=== PATIENT | male | born 1970 | race Caucasian/White ===

== ENCOUNTER 2022-08-18 00:50 | Inpatient (IN) | payer OTHER, SELFPAY ==
[2022-08-18] MEDS ORDERED: Cefepime 2 GM VIAL ONE (01:32)
[2022-08-18 01:51] LABS: Hemoglobin 13.7 g/dL (14.0-18.0); Mean Corpuscular HGB CONC 33.3 g/dL (32.0-36.0); Mean Corpuscular Hemoglobin 28.2 pg (27.0-31.0); Mean Corpuscular Volume 84.8 fl (78.0-98.0); Mean Platelet Volume 7.6 fL (7.4-10.4); Platelet Count 428 10x3/uL (130-400); RBC Distribution Width 12.2 % (11.5-14.5); Red Blood Cell (RBC) Count 4.83 mill/uL (4.70-6.10); White Blood Cell (WBC) Count 18.7 10x3/uL (4.8-10.8)
[2022-08-18 02:05] LABS: ALT (SGPT) Less than 7 U/L (8-55); AST (SGOT) 8 U/L (5-34); Albumin 3.6 g/dL (3.5-5.0); Alkaline Phosphatase 52 U/L (40-110); Anion Gap 21 mmol/L (10-20); BUN (Urea Nitrogen) 15 mg/dL (8.9-20.6); Bilirubin, Total 0.5 mg/dL (0.2-1.2); Calc. Creatinine Clearance 0 mL/min (70-130); Calcium 9.4 mg/dL (7.8-10.44); Carbon Dioxide 16 mmol/L (22-29); Chloride 94 mmol/L (98-107); Estimated GFR 95; Globulin 3.4 g/dL (2.4-3.5); Potassium 3.8 mmol/L (3.5-5.1); Sodium 127 mmol/L (136-145)
[2022-08-18 02:09] LABS: Glucose 724 mg/dL (70-105)
[2022-08-18 02:10] LABS: Band 12 % (5-11); Eosinophils 3 % (0-10); Lymphocytes 15 % (21-51); MDiff Complete? YES; Monocytes 6 % (0-10); Neutrophil 64 % (42-75); Platelet Morphology Comment Appears Increased; RBC Morphology Normal
[2022-08-18 02:27] LABS: Actual Bicarbonate (HCO3v) 21 mEq/L (22-28); Analyzer IN Cardio ER; Base Excess -1.4 mEq/L (-2.0 to +3.0); Calcium, Ionized (venous) 1.09 mmol/L (1.16-1.32); Chloride (VBG) 96 mmol/L (98-106); Hemoglobin (Hb) 14.3 g/dL (13.1-17.2); Potassium (VBG) 4.59 mmol/L (3.70-5.30); pH (venous) 7.49 (7.32-7.43)
[2022-08-18] MEDS ORDERED: VANCOMYCIN 1.75 GM/500 ML BAG 1.75 GM in Premix Bag 1 BAG IVPB SCH (03:00)
[2022-08-18 03:44] LABS: Bacteria/HPF None Seen HPF (None Seen); Bilirubin Negative (Negative); Blood, Urine 3+ (Negative); Clarity Clear (Clear); Glucose, Urine (Dipstick) Greater than 1000 mg/dL (Negative); Ketone, Urine 40 mg/dL (Negative); Leukocyte Negative Leu/uL (Negative); Nitrite Negative (Negative); Protein, Urine (Dipstick) Negative (Neg-Trace); RBC/HPF 21-50 HPF (0-3); Specific Gravity, Urine 1.039 (1.002-1.036); Squamous Epithelial None Seen HPF (0-3); Urobilinogen Normal mg/dL (Less than 2); pH, Urine 5.5 (5.0-9.0)
[2022-08-18] MEDS ORDERED: Dextrose 5% in Water 1,000 ML IV PRN (05:08)
[2022-08-18] MEDS ORDERED: Dextrose 50% Abboject 50 ML SYRINGE SLOW IVP PRN (05:08)
[2022-08-18] MEDS ORDERED: Ondansetron PF 4 MG/2 ML Vial IVP PRN ×2 (06:45→09:01)
[2022-08-18] MEDS ORDERED: Sodium Chloride 0.9% 1,000 ML IV SCH ×2 (06:45→09:30)
[2022-08-18] MEDS ORDERED: Ondansetron ODT 4 MG TAB SL PRN (06:45)
[2022-08-18] MEDS ORDERED: Acetaminophen 325 MG TAB PO PRN ×2 (06:45→09:01)
[2022-08-18] MEDS ORDERED: Ondansetron ODT 4 MG TAB PO PRN (09:01)
[2022-08-18] MEDS ORDERED: Calcium Carbonate 500 MG ChewTAB PO PRN (09:01)
[2022-08-18] MEDS ORDERED: Senokot S 8.6-50 MG TAB PO PRN (09:01)
[2022-08-18] MEDS ORDERED: HYDROcodone/Acetaminophen 5/325 mg Tablet PO PRN (09:01)
[2022-08-18] MEDS ORDERED: hydrALAZINE 25 MG TAB PO PRN (09:06)
[2022-08-18 09:15] LABS: Anion Gap 17 mmol/L (10-20); BUN (Urea Nitrogen) 11 mg/dL (8.9-20.6); Calc. Creatinine Clearance 0 mL/min (70-130); Calcium 8.6 mg/dL (7.8-10.44); Carbon Dioxide 15 mmol/L (22-29); Chloride 103 mmol/L (98-107); Estimated GFR 112; Glucose 377 mg/dL (70-105); Sodium 131 mmol/L (136-145)
[2022-08-18] MEDS ORDERED: Lisinopril 20 MG TAB PO PRN (09:22)
[2022-08-18 09:35] LABS: Lactic Acid 0.6 mmol/L (0.5-2.2)
[2022-08-18 09:37] LABS: Hemoglobin A1c 12.7 % (4.0-6.0)
[2022-08-18] MEDS ORDERED: Senokot 8.6 MG TAB PO PRN (09:38)
[2022-08-18 09:44] LABS: Troponin I Less than 0.010 ng/mL (< 0.028)
[2022-08-18] MEDS: NS 0.9% w/ 20 MEQ KCL 1,000 ML/1,000 ML BAG IV SCH ×2 (09:55→17:05)
[2022-08-18 10:02] VITALS: BMI 36.8
[2022-08-18] MEDS ORDERED: Insulin Glargine 30 UNITS/0.3 ML VIAL SC SCH ×2 (11:00→17:30)
[2022-08-18] MEDS: metroNIDAZOLE 500 MG in Premix Bag 1 BAG IVPB SCH ×2 (11:47→21:44)
[2022-08-18] MEDS: VANCOMYCIN 1.75 GM/500 ML BAG 1.75 GM in Premix Bag 1 BAG IVPB SCH ×2 (12:56→21:42)
[2022-08-18] MEDS ORDERED: Cefepime 2 GM in Sodium Chloride 0.9% 100 ML IVPB SCH (13:00)
[2022-08-18] MEDS: HumaLOG 300 UNITS/3 ML VIAL SC PRN ×2 (13:57→21:46)
[2022-08-18] MEDS: Cefepime 2 GM in Sodium Chloride 0.9% 100 ML IVPB SCH (14:01)
[2022-08-18] MEDS: Heparin 5,000 UNITS/ML VIAL SC SCH (15:05)
[2022-08-18 16:37] LABS: Anion Gap 13 mmol/L (10-20); BUN (Urea Nitrogen) 10 mg/dL (8.9-20.6); Calc. Creatinine Clearance 217 mL/min (70-130); Calcium 8.6 mg/dL (7.8-10.44); Carbon Dioxide 16 mmol/L (22-29); Chloride 109 mmol/L (98-107); Estimated GFR 114; Glucose 247 mg/dL (70-105); Potassium 3.9 mmol/L (3.5-5.1); Sodium 134 mmol/L (136-145)
[2022-08-18] MEDS: Potassium Chloride 20 MEQ in Lactated Ringer's 1,000 ML IV SCH (18:48)
[2022-08-18] MEDS ORDERED: Senokot 8.6 MG TAB PO SCH (21:00)
[2022-08-19] MEDS: Heparin 5,000 UNITS/ML VIAL SC SCH ×4 (00:04→23:23)
[2022-08-19] MEDS: Famotidine 20 MG TAB PO SCH ×3 (00:04→23:23)
[2022-08-19] MEDS: Potassium Chloride 20 MEQ in Lactated Ringer's 1,000 ML IV SCH ×3 (01:59→19:13)
[2022-08-19] MEDS: Cefepime 2 GM in Sodium Chloride 0.9% 100 ML IVPB SCH ×2 (01:59→14:58)
[2022-08-19 03:08] LABS: #Basophils 0.1 thou/uL (0.0-0.2); #Eosinphils 0.5 thou/uL (0.0-0.7); #Lymphocytes 1.8 thou/uL (1.20-3.40); #Monocytes 1.4 thou/uL (0.11-0.59); #Neutrophils 11.4 thou/uL (1.40-6.50); %Basophils 0.6 % (0.0-1.0); %Eosinophils 3.5 % (0.0-10.0); %Lymphocytes 11.7 % (21.0-51.0); %Monocytes 9.1 % (0.0-10.0); %Neutrophils 75.2 % (42.0-75.0); Hemoglobin 11.6 g/dL (14.0-18.0); Mean Corpuscular HGB CONC 32.6 g/dL (32.0-36.0); Mean Corpuscular Hemoglobin 28.1 pg (27.0-31.0); Mean Corpuscular Volume 86.2 fl (78.0-98.0); Platelet Count 359 10x3/uL (130-400); Red Blood Cell (RBC) Count 4.11 mill/uL (4.70-6.10); White Blood Cell (WBC) Count 15.2 10x3/uL (4.8-10.8)
[2022-08-19 03:20] LABS: Vancomycin, Trough 12.5 ug/mL
[2022-08-19 03:52] LABS: ALT (SGPT) 7 U/L (8-55); AST (SGOT) 7 U/L (5-34); Albumin 2.9 g/dL (3.5-5.0); Alkaline Phosphatase 40 U/L (40-110); Anion Gap 17 mmol/L (10-20); BUN (Urea Nitrogen) 8 mg/dL (8.9-20.6); Bilirubin, Total 0.3 mg/dL (0.2-1.2); Calc. Creatinine Clearance 238 mL/min (70-130); Calcium 8.4 mg/dL (7.8-10.44); Carbon Dioxide 13 mmol/L (22-29); Chloride 108 mmol/L (98-107); Estimated GFR 117; Globulin 2.6 g/dL (2.4-3.5); Glucose 248 mg/dL (70-105); Magnesium 1.6 mg/dL (1.6-2.6); Potassium 3.9 mmol/L (3.5-5.1); Protein, Total 5.5 g/dL (6.0-8.3); Sodium 134 mmol/L (136-145)
[2022-08-19] MEDS: VANCOMYCIN 1.75 GM/500 ML BAG 1.75 GM in Premix Bag 1 BAG IVPB SCH ×3 (05:46→21:44)
[2022-08-19] MEDS: metroNIDAZOLE 500 MG in Premix Bag 1 BAG IVPB SCH ×3 (05:46→21:47)
[2022-08-19] MEDS ORDERED: fentaNYL PF 100 MCG/2 ML SYRINGE ONE (07:27)
[2022-08-19] MEDS ORDERED: SUGAMMADEX SODIUM 200 MG/2 ML VIAL ONE (07:27)
[2022-08-19] MEDS ORDERED: Bupivacaine/Epinephrine 0.25% 30 ML VIAL ONE (07:43)
[2022-08-19] MEDS: Levothyroxine Sodium 50 MCG TAB PO SCH (07:54)
[2022-08-19] MEDS ORDERED: Promethazine HCl 25 MG/ML VIAL IVPB PRN (08:05)
[2022-08-19] MEDS ORDERED: Promethazine HCl 25 MG/ML VIAL IM PRN (08:05)
[2022-08-19] MEDS ORDERED: Ondansetron HCl/PF 4 MG/2 ML Vial IVP PRN (08:05)
[2022-08-19] MEDS ORDERED: Ketorolac Tromethamine 30 MG/ML VIAL ONE (08:15)
[2022-08-19] MEDS ORDERED: Glycopyrrolate 0.2 MG/ML 5 ML SYRINGE ONE (08:15)
[2022-08-19] MEDS ORDERED: NEOSTIGMINE 3 MG/3 ML SYR 3 MG/3 ML SYRINGE ONE (08:15)
[2022-08-19] MEDS ORDERED: PHENYLEPHRINE-NS 100 MCG/ML 10 ML SYRINGE ONE (08:15)
[2022-08-19] MEDS ORDERED: PROPOFOL 200 MG/20 ML VIAL ONE (08:15)
[2022-08-19] MEDS ORDERED: Rocuronium Bromide 10 MG/ML (10ML VIAL) ONE (08:15)
[2022-08-19] MEDS ORDERED: Ondansetron PF 4 MG/2 ML Vial ONE (08:15)
[2022-08-19] MEDS: Insulin Glargine 30 UNITS/0.3 ML VIAL SC SCH (10:13)
[2022-08-19] MEDS ORDERED: Morphine 4 MG/ML VIAL SLOW IVP PRN ×2 (11:18→11:28)
[2022-08-19] MEDS ORDERED: HYDROcodone/Acetaminophen 5/325 mg Tablet PO PRN ×2 (11:18)
[2022-08-19] MEDS: Saccharomyces boulardii 250 MG CAP PO SCH (12:22)
[2022-08-19] MEDS ORDERED: Loratadine 10 MG TAB PO PRN (20:54)
[2022-08-19] MEDS: HumaLOG 300 UNITS/3 ML VIAL SC PRN (21:50)
[2022-08-20] MEDS: Cefepime 2 GM in Sodium Chloride 0.9% 100 ML IVPB SCH ×2 (01:34→14:56)
[2022-08-20] MEDS: Potassium Chloride 20 MEQ in Lactated Ringer's 1,000 ML IV SCH ×2 (01:35→14:56)
[2022-08-20 02:48] LABS: #Basophils 0.1 thou/uL (0.0-0.2); #Eosinphils 0.7 thou/uL (0.0-0.7); #Monocytes 0.9 thou/uL (0.11-0.59); #Neutrophils 8.7 thou/uL (1.40-6.50); %Basophils 0.5 % (0.0-1.0); %Eosinophils 5.7 % (0.0-10.0); %Lymphocytes 16.5 % (21.0-51.0); %Monocytes 7.1 % (0.0-10.0); %Neutrophils 70.3 % (42.0-75.0); Hemoglobin 11.2 g/dL (14.0-18.0); Mean Corpuscular HGB CONC 32.8 g/dL (32.0-36.0); Mean Corpuscular Volume 85.4 fl (78.0-98.0); Platelet Count 373 10x3/uL (130-400); Red Blood Cell (RBC) Count 4.01 mill/uL (4.70-6.10); White Blood Cell (WBC) Count 12.3 10x3/uL (4.8-10.8)
[2022-08-20 03:12] LABS: Vancomycin, Trough 17.2 ug/mL
[2022-08-20 03:14] LABS: Anion Gap 15 mmol/L (10-20); BUN (Urea Nitrogen) 8 mg/dL (8.9-20.6); Calc. Creatinine Clearance 230 mL/min (70-130); Calcium 8.4 mg/dL (7.8-10.44); Carbon Dioxide 15 mmol/L (22-29); Chloride 107 mmol/L (98-107); Estimated GFR 116; Glucose 283 mg/dL (70-105); Potassium 3.8 mmol/L (3.5-5.1); Sodium 133 mmol/L (136-145)
[2022-08-20] MEDS: VANCOMYCIN 1.75 GM/500 ML BAG 1.75 GM in Premix Bag 1 BAG IVPB SCH ×2 (04:50→11:19)
[2022-08-20] MEDS: metroNIDAZOLE 500 MG in Premix Bag 1 BAG IVPB SCH ×3 (04:50→21:21)
[2022-08-20] MEDS: Levothyroxine Sodium 50 MCG TAB PO SCH (05:36)
[2022-08-20] MEDS: Famotidine 20 MG TAB PO SCH ×2 (09:06→23:27)
[2022-08-20] MEDS: Heparin 5,000 UNITS/ML VIAL SC SCH ×3 (09:07→23:27)
[2022-08-20] MEDS: Insulin Glargine 30 UNITS/0.3 ML VIAL SC SCH ×2 (11:09→21:22)
[2022-08-20] MEDS: Saccharomyces boulardii 250 MG CAP PO SCH (11:09)
[2022-08-20] MEDS: Vancomycin HCl 1.75 GM in Sodium Chloride 0.9% 500 ML IVPB SCH (21:22)
[2022-08-20] MEDS: HumaLOG 300 UNITS/3 ML VIAL SC PRN (21:23)
[2022-08-21] MEDS: Cefepime 2 GM in Sodium Chloride 0.9% 100 ML IVPB SCH ×2 (02:45→16:26)
[2022-08-21] MEDS: metroNIDAZOLE 500 MG in Premix Bag 1 BAG IVPB SCH ×3 (04:29→20:59)
[2022-08-21 05:59] LABS: #Basophils 0.1 thou/uL (0.0-0.2); #Eosinphils 0.7 thou/uL (0.0-0.7); #Lymphocytes 1.8 thou/uL (1.20-3.40); #Neutrophils 6.1 thou/uL (1.40-6.50); %Basophils 0.7 % (0.0-1.0); %Lymphocytes 18.9 % (21.0-51.0); %Monocytes 10.3 % (0.0-10.0); %Neutrophils 63.1 % (42.0-75.0); Hemoglobin 11.7 g/dL (14.0-18.0); Mean Corpuscular HGB CONC 31.7 g/dL (32.0-36.0); Mean Corpuscular Hemoglobin 27.6 pg (27.0-31.0); Mean Corpuscular Volume 87.2 fl (78.0-98.0); Mean Platelet Volume 7.2 fL (7.4-10.4); Platelet Count 398 10x3/uL (130-400); Red Blood Cell (RBC) Count 4.23 mill/uL (4.70-6.10); White Blood Cell (WBC) Count 9.7 10x3/uL (4.8-10.8)
[2022-08-21] MEDS: Vancomycin HCl 1.75 GM in Sodium Chloride 0.9% 500 ML IVPB SCH ×2 (06:15→13:28)
[2022-08-21] MEDS: Levothyroxine Sodium 50 MCG TAB PO SCH (07:49)
[2022-08-21] MEDS: VANCOMYCIN 1.75 GM/500 ML BAG 1.75 GM in Premix Bag 1 BAG IVPB SCH (07:52)
[2022-08-21] MEDS: Insulin Glargine 30 UNITS/0.3 ML VIAL SC SCH ×2 (08:45→21:03)
[2022-08-21] MEDS: Famotidine 20 MG TAB PO SCH ×2 (08:46→21:00)
[2022-08-21] MEDS: Saccharomyces boulardii 250 MG CAP PO SCH (08:46)
[2022-08-21] MEDS: Heparin 5,000 UNITS/ML VIAL SC SCH ×3 (08:46→21:00)
[2022-08-21] MEDS: HumaLOG 300 UNITS/3 ML VIAL SC PRN (21:02)
[2022-08-22] MEDS: Cefepime 2 GM in Sodium Chloride 0.9% 100 ML IVPB SCH ×2 (02:01→14:28)
[2022-08-22] MEDS: metroNIDAZOLE 500 MG in Premix Bag 1 BAG IVPB SCH ×3 (04:07→23:27)
[2022-08-22] MEDS: Levothyroxine Sodium 50 MCG TAB PO SCH (05:57)
[2022-08-22] MEDS: Saccharomyces boulardii 250 MG CAP PO SCH (09:43)
[2022-08-22] MEDS: Insulin Glargine 30 UNITS/0.3 ML VIAL SC SCH (09:43)
[2022-08-22] MEDS: Heparin 5,000 UNITS/ML VIAL SC SCH ×3 (09:49→22:54)
[2022-08-22] MEDS: Famotidine 20 MG TAB PO SCH ×2 (09:49→22:54)
[2022-08-22] MEDS: HumaLOG 300 UNITS/3 ML VIAL SC PRN (22:50)
[2022-08-23] MEDS: Insulin Glargine 30 UNITS/0.3 ML VIAL SC SCH ×2 (00:14→09:33)
[2022-08-23] MEDS: Cefepime 2 GM in Sodium Chloride 0.9% 100 ML IVPB SCH (03:37)
[2022-08-23] MEDS: metroNIDAZOLE 500 MG in Premix Bag 1 BAG IVPB SCH ×2 (04:25→13:44)
[2022-08-23] MEDS: Levothyroxine Sodium 50 MCG TAB PO SCH (06:17)
[2022-08-23] MEDS: HumaLOG 300 UNITS/3 ML VIAL SC PRN (07:02)
[2022-08-23] MEDS: Saccharomyces boulardii 250 MG CAP PO SCH (09:33)
[2022-08-23] MEDS: Famotidine 20 MG TAB PO SCH (09:34)
[2022-08-23] MEDS: Heparin 5,000 UNITS/ML VIAL SC SCH (09:34)
[2022-08-23 11:47] VITALS: BP 133/88; TEMP 97.8
[2022-08-24 11:41] LABS: Fungus Stain Final report (.)
== END 2022-08-23 13:40 | disposition home or self-care (01) | DRG 853 ==
LOC: ERS 00:50 → NEURO 05:03 → 2NO 08-21 15:35
PROVIDERS: ADMIT Student in an Organized Health Care Education/Training Program; ATTEND Family Medicine
PROC: 3E03329 Introduction of Other Anti-infective into Peripheral Vein, Percutaneous Approach (ICD-10-PCS; 2022-08-18)
PROC: 0J990ZZ Drainage of Buttock Subcutaneous Tissue and Fascia, Open Approach (ICD-10-PCS; principal; 2022-08-19)
PROC: 0JB90ZZ Excision of Buttock Subcutaneous Tissue and Fascia, Open Approach (ICD-10-PCS; 2022-08-19)
DX: A41.9 Sepsis, unspecified organism (principal); E11.10 Type 2 diabetes mellitus with ketoacidosis without coma; L02.31 Cutaneous abscess of buttock; R65.20 Severe sepsis without septic shock; Z20.822 Contact with and (suspected) exposure to COVID-19; I10 Essential (primary) hypertension; J45.909 Unspecified asthma, uncomplicated; E03.9 Hypothyroidism, unspecified; Z88.0 Allergy status to penicillin; Z79.899 Other long term (current) drug therapy; Z79.890 Hormone replacement therapy; Z83.3 Family history of diabetes mellitus; Z82.49 Family history of ischemic heart disease and other diseases of the circulatory system; Z80.9 Family history of malignant neoplasm, unspecified; Z88.8 Allergy status to other drugs, medicaments and biological substances
CPT/HCPCS: 36415; 36416; 80048; 80053; 80202; 81003; 81015; 82010; 82805; 83036; 83605; 83735; 83930; 84484; 85025; 87040; 87070; 87077; 87086; 87102; 87186; 87205; 87206; 93005; 96374; 96375; 97139; J0692; J1815; J1885; J2405; J2704; J3370; J3480; J3490; J7030; J7050; J7120; U0003; U0005

== ENCOUNTER 2022-08-26 21:29 | Emergency (ER) | payer OTHER | END 2022-08-27 01:39 | disposition home or self-care (01) | LOC: ERS 21:29 | DX: S31.809A Unspecified open wound of unspecified buttock, initial encounter (principal); E11.9 Type 2 diabetes mellitus without complications; Z79.4 Long term (current) use of insulin; I10 Essential (primary) hypertension; X58.XXXA Exposure to other specified factors, initial encounter | CPT/HCPCS: 99283 ==

== ENCOUNTER 2022-08-30 12:51 | Emergency (ER) | payer OTHER, SELFPAY | END 2022-08-30 15:45 | disposition home or self-care (01) | LOC: ERS 12:51 | DX: Z48.00 Encounter for change or removal of nonsurgical wound dressing (principal); I10 Essential (primary) hypertension; E03.9 Hypothyroidism, unspecified; E11.9 Type 2 diabetes mellitus without complications; Z79.899 Other long term (current) drug therapy | CPT/HCPCS: 99282 ==

== ENCOUNTER 2022-11-27 19:56 | Inpatient (IN) | payer MEDICAID, OTHER ==
[2022-11-28 00:20] LABS: Hemoglobin 14.3 g/dL (14.0-18.0); Mean Corpuscular HGB CONC 32.5 g/dL (32.0-36.0); Mean Corpuscular Hemoglobin 27.5 pg (27.0-31.0); Mean Corpuscular Volume 84.5 fl (78.0-98.0); Mean Platelet Volume 7.2 fL (7.4-10.4); Platelet Count 447 10x3/uL (130-400); RBC Distribution Width 12.9 % (11.5-14.5); Red Blood Cell (RBC) Count 5.22 mill/uL (4.70-6.10); White Blood Cell (WBC) Count 27.7 10x3/uL (4.8-10.8)
[2022-11-28] MEDS ORDERED: Cefepime 2 GM VIAL ONE (00:23)
[2022-11-28 00:39] LABS: ALT (SGPT) 11 U/L (8-55); AST (SGOT) 8 U/L (5-34); Albumin 3.6 g/dL (3.5-5.0); Alkaline Phosphatase 61 U/L (40-110); Anion Gap 14 mmol/L (10-20); BUN (Urea Nitrogen) 13 mg/dL (8.9-20.6); Bilirubin, Total 0.4 mg/dL (0.2-1.2); Calc. Creatinine Clearance 0 mL/min (70-130); Calcium 9.5 mg/dL (7.8-10.44); Carbon Dioxide 24 mmol/L (22-29); Chloride 94 mmol/L (98-107); Estimated GFR 109; Globulin 3.8 g/dL (2.4-3.5); Glucose 316 mg/dL (70-105); Potassium 4.2 mmol/L (3.5-5.1); Protein, Total 7.4 g/dL (6.0-8.3); Sodium 128 mmol/L (136-145)
[2022-11-28 01:04] LABS: Band 24 % (5-11); Lymphocytes 1 % (21-51); MDiff Complete? YES; Monocytes 5 % (0-10); Neutrophil 70 % (42-75); Platelet Morphology Comment Appears Increased; RBC Morphology Normal
[2022-11-28] MEDS ORDERED: Morphine 4 MG/ML VIAL ONE ×2 (01:14→02:48)
[2022-11-28] MEDS ORDERED: Ondansetron ODT 4 MG TAB PO PRN (01:18)
[2022-11-28] MEDS ORDERED: Dextrose 5% in Water 1,000 ML IV PRN (01:18)
[2022-11-28] MEDS ORDERED: Acetaminophen 650 MG Suppository PR PRN (01:18)
[2022-11-28] MEDS ORDERED: Dextrose 50% Abboject 50 ML SYRINGE SLOW IVP PRN (01:18)
[2022-11-28] MEDS ORDERED: Ondansetron PF 4 MG/2 ML Vial IVP PRN (01:18)
[2022-11-28] MEDS ORDERED: Insulin Regular 300 UNITS/3 ML VIAL ONE ×4 (01:28→01:51)
[2022-11-28] MEDS ORDERED: Morphine 4 MG/ML VIAL SLOW IVP PRN (01:31)
[2022-11-28] MEDS ORDERED: Vancomycin 1 GM/200 ML (FROZEN) BAG ONE (01:33)
[2022-11-28] MEDS ORDERED: Sodium Chloride 0.9% 1,000 ML IV SCH (01:45)
[2022-11-28] MEDS ORDERED: Insulin Regular 300 UNITS/3 ML VIAL SC SCH (02:00)
[2022-11-28] MEDS: metroNIDAZOLE 500 MG in Premix Bag 1 BAG IVPB SCH ×3 (04:13→18:05)
[2022-11-28 05:24] LABS: Anion Gap 11 mmol/L (10-20); BUN (Urea Nitrogen) 10 mg/dL (8.9-20.6); Calc. Creatinine Clearance 0 mL/min (70-130); Calcium 8.4 mg/dL (7.8-10.44); Carbon Dioxide 23 mmol/L (22-29); Chloride 98 mmol/L (98-107); Estimated GFR 113; Glucose 291 mg/dL (70-105); Potassium 3.9 mmol/L (3.5-5.1); Sodium 128 mmol/L (136-145)
[2022-11-28 05:25] LABS: Band 19 % (5-11); Hemoglobin 12.6 g/dL (14.0-18.0); Lymphocytes 7 % (21-51); MDiff Complete? YES; Mean Corpuscular Hemoglobin 28.6 pg (27.0-31.0); Mean Corpuscular Volume 84.3 fl (78.0-98.0); Monocytes 4 % (0-10); Neutrophil 70 % (42-75); Platelet Count 382 10x3/uL (130-400); Platelet Morphology Comment Appears Adequate; RBC Distribution Width 12.8 % (11.5-14.5); RBC Morphology Normal; White Blood Cell (WBC) Count 24.4 10x3/uL (4.8-10.8)
[2022-11-28 05:26] LABS: Bacteria/HPF None Seen HPF (None Seen); Bilirubin Negative (Negative); Blood, Urine 3+ (Negative); Clarity Clear (Clear); Glucose, Urine (Dipstick) Greater than 1000 mg/dL (Negative); Ketone, Urine 40 mg/dL (Negative); Leukocyte Negative Leu/uL (Negative); Nitrite Negative (Negative); Protein, Urine (Dipstick) 50 mg/dL (Neg-Trace); RBC/HPF Greater than 50 HPF (0-3); Squamous Epithelial 0-3 HPF (0-3); Urobilinogen Normal mg/dL (Less than 2); WBC/HPF 21-50 HPF (0-3)
[2022-11-28 05:29] LABS: Specific Gravity, Urine 1.051 (1.002-1.036)
[2022-11-28] MEDS ORDERED: Vancomycin 1.5 GRAM/300 ML BAG 1.5 GM in Premix Bag 1 BAG IVPB SCH (06:00)
[2022-11-28 08:59] LABS: SARS-CoV-2 NAA Rapid Test Not Detected (NotDetected)
[2022-11-28] MEDS ORDERED: Levothyroxine Sodium 50 MCG TAB PO SCH (09:00)
[2022-11-28 09:24] VITALS: BMI 38.4
[2022-11-28] MEDS: Sodium Chloride 0.9% 1,000 ML IV SCH ×2 (09:41→12:38)
[2022-11-28] MEDS ORDERED: Iopamidol-370 76% 500 ML 1 ML ONE (10:44)
[2022-11-28] MEDS: Insulin Glargine 30 UNITS/0.3 ML VIAL SC SCH ×2 (11:00→22:37)
[2022-11-28] MEDS ORDERED: Acetaminophen 325 MG TAB ONE ×2 (11:24→11:25)
[2022-11-28] MEDS: Acetaminophen 325 MG TAB PO PRN ×2 (11:31→22:39)
[2022-11-28] MEDS ORDERED: VANCOMYCIN 1.25 GM/250 ML BAG IVPB SCH (12:00)
[2022-11-28] MEDS: Cefepime 2 GM in Sodium Chloride 0.9% 100 ML IVPB SCH (12:37)
[2022-11-28] MEDS: Vancomycin 1.5 GRAM/300 ML BAG 1.5 GM in Premix Bag 1 BAG IVPB SCH ×2 (14:07→22:41)
[2022-11-28] MEDS: HYDROcodone/Acetaminophen 5/325 mg Tablet PO PRN (15:30)
[2022-11-28] MEDS: HumaLOG 300 UNITS/3 ML VIAL SC PRN ×2 (18:05→23:00)
[2022-11-28] MEDS: Levothyroxine Sodium 50 MCG TAB PO SCH (22:39)
[2022-11-29] MEDS: Cefepime 2 GM in Sodium Chloride 0.9% 100 ML IVPB SCH ×3 (01:42→23:27)
[2022-11-29] MEDS: Sodium Chloride 0.9% 1,000 ML IV SCH ×2 (01:43→09:16)
[2022-11-29] MEDS: metroNIDAZOLE 500 MG in Premix Bag 1 BAG IVPB SCH ×3 (02:33→17:36)
[2022-11-29] MEDS: Acetaminophen 325 MG TAB PO PRN (04:25)
[2022-11-29] MEDS ORDERED: Levothyroxine Sodium 50 MCG TAB PO SCH (06:00)
[2022-11-29 06:19] LABS: Anion Gap 13 mmol/L (10-20); BUN (Urea Nitrogen) 8 mg/dL (8.9-20.6); Calc. Creatinine Clearance 258 mL/min (70-130); Calcium 7.8 mg/dL (7.8-10.44); Carbon Dioxide 19 mmol/L (22-29); Chloride 102 mmol/L (98-107); Estimated GFR 118; Glucose 251 mg/dL (70-105); Potassium 3.6 mmol/L (3.5-5.1); Sodium 130 mmol/L (136-145)
[2022-11-29 06:27] LABS: Red Blood Cell (RBC) Count 4.02 mill/uL (4.70-6.10); White Blood Cell (WBC) Count 26.3 10x3/uL (4.8-10.8)
[2022-11-29 06:28] LABS: Band 30 % (5-11); Hemoglobin 11.3 g/dL (14.0-18.0); Hypochromia SLIGHT = 6-15 cells (100X) (0-5/hpf); Lymphocytes 1 % (21-51); MDiff Complete? YES; Mean Corpuscular HGB CONC 32.7 g/dL (32.0-36.0); Mean Corpuscular Volume 85.6 fl (78.0-98.0); Mean Platelet Volume 7.1 fL (7.4-10.4); Monocytes 12 % (0-10); Neutrophil 56 % (42-75); Platelet Count 368 10x3/uL (130-400); Platelet Morphology Comment Appears Adequate; RBC Distribution Width 12.9 % (11.5-14.5); Reactive Lymphocytes 1 % (0-10)
[2022-11-29] MEDS: Vancomycin 1.5 GRAM/300 ML BAG 1.5 GM in Premix Bag 1 BAG IVPB SCH ×3 (07:32→16:07)
[2022-11-29] MEDS: HumaLOG 300 UNITS/3 ML VIAL SC PRN ×4 (07:33→20:27)
[2022-11-29] MEDS: Insulin Glargine 30 UNITS/0.3 ML VIAL SC SCH ×2 (09:17→20:25)
[2022-11-29] MEDS: HYDROcodone/Acetaminophen 5/325 mg Tablet PO PRN ×3 (09:17→20:47)
[2022-11-29 13:28] LABS: Vancomycin, Trough 12.9 ug/mL
[2022-11-29] MEDS ORDERED: fentaNYL PF 100 MCG/2 ML SYRINGE ONE (14:14)
[2022-11-29] MEDS ORDERED: Dexmedetomidine 200 MCG/2 ML VIAL ONE (14:14)
[2022-11-29] MEDS ORDERED: Midazolam HCl 2 mg/2 ml Vial ONE (14:41)
[2022-11-29] MEDS ORDERED: Bupivacaine/Epinephrine 0.25% 30 ML VIAL ONE (14:45)
[2022-11-29] MEDS ORDERED: Lidocaine 1% (PF) 30 ML VIAL ONE (14:45)
[2022-11-29] MEDS ORDERED: Fentanyl 100 MCG/2 ML VIAL ONE (15:23)
[2022-11-29] MEDS: Levothyroxine Sodium 50 MCG TAB PO SCH (20:46)
[2022-11-29] MEDS: diphenhydrAMINE 25 MG CAP PO SCH (20:46)
[2022-11-29] MEDS ORDERED: Lisinopril 20 MG TAB PO SCH (21:30)
[2022-11-30] MEDS: Vancomycin 1.5 GRAM/300 ML BAG 1.5 GM in Premix Bag 1 BAG IVPB SCH ×2 (00:28→08:11)
[2022-11-30] MEDS: metroNIDAZOLE 500 MG in Premix Bag 1 BAG IVPB SCH ×2 (02:22→13:50)
[2022-11-30] MEDS: HumaLOG 300 UNITS/3 ML VIAL SC PRN ×3 (06:33→20:50)
[2022-11-30 06:40] LABS: Hemoglobin 11.9 g/dL (14.0-18.0); Mean Corpuscular HGB CONC 33.3 g/dL (32.0-36.0); Mean Corpuscular Hemoglobin 28.4 pg (27.0-31.0); Mean Corpuscular Volume 85.3 fl (78.0-98.0); Mean Platelet Volume 6.9 fL (7.4-10.4); Platelet Count 409 10x3/uL (130-400); RBC Distribution Width 13.1 % (11.5-14.5); White Blood Cell (WBC) Count 24.5 10x3/uL (4.8-10.8)
[2022-11-30 07:05] LABS: ALT (SGPT) 8 U/L (8-55); AST (SGOT) 11 U/L (5-34); Albumin 2.5 g/dL (3.5-5.0); Alkaline Phosphatase 64 U/L (40-110); Anion Gap 12 mmol/L (10-20); BUN (Urea Nitrogen) 8 mg/dL (8.9-20.6); Bilirubin, Total 0.2 mg/dL (0.2-1.2); Calc. Creatinine Clearance 249 mL/min (70-130); Calcium 8.3 mg/dL (7.8-10.44); Carbon Dioxide 20 mmol/L (22-29); Chloride 105 mmol/L (98-107); Estimated GFR 117; Globulin 2.7 g/dL (2.4-3.5); Glucose 233 mg/dL (70-105); Potassium 3.4 mmol/L (3.5-5.1); Protein, Total 5.2 g/dL (6.0-8.3); Sodium 134 mmol/L (136-145)
[2022-11-30 07:48] LABS: Band 26 % (5-11); Eosinophils 3 % (0-10); Lymphocytes 7 % (21-51); MDiff Complete? YES; Monocytes 4 % (0-10); Neutrophil 60 % (42-75); Platelet Morphology Comment Appears Increased; Polychromasia SLIGHT = 2-3 cells (100X) (0-2/hpf)
[2022-11-30] MEDS: HYDROcodone/Acetaminophen 5/325 mg Tablet PO PRN (08:11)
[2022-11-30] MEDS: Insulin Glargine 30 UNITS/0.3 ML VIAL SC SCH ×2 (08:11→20:50)
[2022-11-30] MEDS ORDERED: Electrolyte Replacement Protocol 1 EACH FS SCH (08:23)
[2022-11-30] MEDS ORDERED: Potassium Chloride 20 MEQ TAB PO SCH (08:30)
[2022-11-30] MEDS ORDERED: Bisacodyl 10 MG SUPP PR PRN (10:17)
[2022-11-30] MEDS ORDERED: Lidocaine 4% Topical Sol 50 ML BOT TOP SCH (11:00)
[2022-11-30] MEDS ORDERED: Vancomycin 1.5 GRAM/300 ML BAG 1.5 GM in Premix Bag 1 BAG IVPB SCH (11:00)
[2022-11-30] MEDS: Cefepime 2 GM in Sodium Chloride 0.9% 100 ML IVPB SCH (13:50)
[2022-11-30] MEDS ORDERED: DAPTOmycin 500 MG in Sodium Chloride 0.9% 100 ML IVPB SCH (16:00)
[2022-11-30] MEDS: diphenhydrAMINE 25 MG CAP PO SCH (20:52)
[2022-11-30] MEDS: Levothyroxine Sodium 50 MCG TAB PO SCH (20:52)
[2022-11-30] MEDS ORDERED: Lisinopril 20 MG TAB PO SCH (21:00)
[2022-12-01] MEDS: Cefepime 2 GM in Sodium Chloride 0.9% 100 ML IVPB SCH ×2 (00:06→12:08)
[2022-12-01 06:04] LABS: Hemoglobin 11.5 g/dL (14.0-18.0); Mean Corpuscular HGB CONC 32.6 g/dL (32.0-36.0); Mean Corpuscular Volume 86.1 fl (78.0-98.0); Platelet Count 464 10x3/uL (130-400); RBC Distribution Width 13.1 % (11.5-14.5); White Blood Cell (WBC) Count 14.8 10x3/uL (4.8-10.8)
[2022-12-01 06:23] LABS: Anion Gap 11 mmol/L (10-20); BUN (Urea Nitrogen) 9 mg/dL (8.9-20.6); Calc. Creatinine Clearance 262 mL/min (70-130); Calcium 8.3 mg/dL (7.8-10.44); Carbon Dioxide 24 mmol/L (22-29); Chloride 105 mmol/L (98-107); Estimated GFR 119; Glucose 220 mg/dL (70-105); Potassium 3.4 mmol/L (3.5-5.1); Sodium 137 mmol/L (136-145)
[2022-12-01 06:36] LABS: Band 10 % (5-11); Eosinophils 2 % (0-10); Lymphocytes 6 % (21-51); MDiff Complete? YES; Monocytes 3 % (0-10); Myelocyte 2 % (0-0); Neutrophil 76 % (42-75); Reactive Lymphocytes 1 % (0-10)
[2022-12-01] MEDS ORDERED: Potassium Chloride 20 MEQ TAB PO SCH ×2 (08:00→10:15)
[2022-12-01 08:47] VITALS: TEMP 98.1
[2022-12-01] MEDS: Insulin Glargine 30 UNITS/0.3 ML VIAL SC SCH (08:51)
[2022-12-01] MEDS ORDERED: Saccharomyces boulardii 250 MG CAP PO SCH (09:00)
[2022-12-01] MEDS: HumaLOG 300 UNITS/3 ML VIAL SC PRN (13:32)
[2022-12-01 16:16] VITALS: BP 144/85
== END 2022-12-01 16:28 | disposition home or self-care (01) | DRG 854 ==
LOC: ERS 19:56 → ERHOLD 11-28 00:54 → MSONC 11-28 12:26 → T4-B 11-30 13:33
PROVIDERS: ADMIT Student in an Organized Health Care Education/Training Program; ATTEND Internal Medicine
PROC: 3E03329 Introduction of Other Anti-infective into Peripheral Vein, Percutaneous Approach (ICD-10-PCS; principal; 2022-11-28)
PROC: 0K9F0ZZ Drainage of Right Trunk Muscle, Open Approach (ICD-10-PCS; 2022-11-29)
PROC: 0K9G0ZZ Drainage of Left Trunk Muscle, Open Approach (ICD-10-PCS; 2022-11-29)
DX: A41.01 Sepsis due to Methicillin susceptible Staphylococcus aureus (principal); E87.1 Hypo-osmolality and hyponatremia; L03.312 Cellulitis of back [any part except buttock and flank]; E03.9 Hypothyroidism, unspecified; I10 Essential (primary) hypertension; E11.65 Type 2 diabetes mellitus with hyperglycemia; E66.9 Obesity, unspecified; E11.628 Type 2 diabetes mellitus with other skin complications; E87.6 Hypokalemia; Z88.8 Allergy status to other drugs, medicaments and biological substances; Z88.0 Allergy status to penicillin; Z79.890 Hormone replacement therapy; Z79.4 Long term (current) use of insulin; Z79.899 Other long term (current) drug therapy
CPT/HCPCS: 36415; 36416; 71260; 80048; 80053; 80202; 81003; 81015; 83605; 85025; 87040; 87070; 87077; 87086; 87186; 87205; 96365; 96367; 96375; 97139; J0692; J0878; J1815; J2001; J2250; J2270; J3010; J3370; J3370-JW; J3490; J7050; Q9967; U0002